=== PATIENT | female | born 1955 | race Caucasian/White ===

== ENCOUNTER 2018-03-15 08:58 | Day surgery (SDC) | END 2018-03-15 15:40 | disposition home or self-care (01) ==

== ENCOUNTER 2018-06-12 19:08 | Emergency (ER) | payer OTHER ==
[~2018-06-12] VITALS: Ht 167.6 cm; Wt 72.9 kg
[~2018-06-12 19:08] MED LIST: AMLO5TAB4 PO; ASPI81TA52 PO; BACL10TA PO; CELE100C PO; DOCU100T PO; ERGO2000 PO; FAMO20TA18 PO; FER325 PO; GLIM2TAB PO; HYDR-4011 PO; METO10TA3 PO; PRAV10TA43 PO; RANI150T5 PO; TOLT2TAB5 PO
[2018-06-12 19:36] VITALS: Ht 167.6 cm; Wt 72.9 kg
--- NOTE | 2018-06-12 21:52 | ERD ---
ER Documentation Chief Complaint Chief Complaint urine catheter bag not draining urine s/p sx lsat tuesday w/ nephrostomy tub HPI This is a 63-year-old female with a past medical history of hypertension, hyperlipidemia, diabetes, bladder cancer complicated by ureteral obstruction status post nephrostomy tube placed 6 months ago status post robotic laparoscopic left ureteral lysis with a ureteroneocystotomy and pelvic lymph node dissection on June 08, 2018 with a Queen catheter placed and nephrostomy tube clamped, who is presenting with concerns of a brief episode of urinary retention from the Queen catheter. The patient's Queen catheter reportedly stopped draining this evening. She noticed small blood clots at first and then urine stopped flowing. The patient called her urologist, Dr. Graham, instructed her to come to the emergency department. Since this episode, the patient was able to pass this blood clot and she has been voiding since then. The patient reports that since voiding, her pain and discomfort have improved significantly. The patient does endorse left-sided abdominal pain, but it is unchanged from her baseline since the surgery. The patient has been taking [place] at home. The patient reportedly was discharged with a prescription for ciprofloxacin, but the patient notes that she is not taking this medication. It is unclear why, but she believes that she is not discharged with an antibiotic. The patient denies feeling sick recently otherwise. The patient denies fever or chills. The patient has had no headache or vision changes. The patient does not endorse neck or back pain. The patient denies lightheadedness or dizziness. The patient has had no chest pain or trouble breathing. The patient denies nausea or vomiting. The patient denies changes to bowel movements. The patient has had no focal deficits. The patient has had no weakness or numbness or tingling to the face or extremities. ROS All systems reviewed and are negative except as per history of present illness. Medications Home Meds Reported Medications Famotidine* (Famotidine*) 20 Mg Tablet, 20 MG PO DAILY, #30 TAB 03/15/18 Metoclopramide Hcl* (Metoclopramide Hcl*) 10 Mg Tablet, 10 MG PO Q6H PRN for NAUSEA AND OR VOMITING, TAB 03/15/18 Docusate Sodium* (Dok*) 100 Mg Tablet, 100 MG PO DAILY, #30 CAP 03/15/18 Tolterodine Tartrate* (Tolterodine Tartrate*) 2 Mg Tablet, 2 MG PO BID, #60 TAB 03/15/18 Ranitidine Hcl* (Ranitidine Hcl*) 150 Mg Tablet, 150 MG PO HS, #30 TAB 03/15/18 Pravastatin Sodium* (Pravastatin Sodium*) 10 Mg Tablet, 10 MG PO HS, TAB 03/15/18 Hydrocodone/Acetaminophen ([place] 5-325 Tablet) 1 Each Tablet, 1 EACH PO QID PRN for PAIN, TAB 03/15/18 Glimepiride* (Glimepiride*) 2 Mg Tablet, 2 MG PO WITH BREAKFAST, TAB 03/15/18 Ferrous Sulfate* (Ferrous Sulfate*) 325 Mg Tabec, 325 MG PO DAILY, TAB 03/15/18 Ergocalciferol (Vitamin D2) (VITAMIN D2) 2,000 Unit Tablet, 2000 UNIT PO DAILY, TAB 03/15/18 Celecoxib* (Celebrex*) 100 Mg Capsule, 100 MG PO BID, CAP 03/15/18 Baclofen* (Baclofen*) 10 Mg Tablet, 10 MG PO DAILY, TAB 03/15/18 Aspirin (Low Dose Aspirin) 81 Mg Tablet.dr, 81 MG PO DAILY, #30 TAB 03/15/18 Amlodipine Besylate* (Norvasc*) 5 Mg Tablet, 5 MG PO BID, TAB 03/15/18 Allergies Allergies: Coded Allergies: Penicillins (Verified Allergy, Unknown, 03/15/18) cephalexin (Verified Allergy, Unknown, 03/15/18) lisinopril (Verified Allergy, Unknown, 03/15/18) morphine (Verified Allergy, Unknown, 03/15/18) nitrofurantoin (Verified Allergy, Unknown, 03/15/18) PMhx/Soc History of Surgery: Yes (Right ovarian cyst removal, urostomy placement) Anesthesia Reaction: No Hx Neurological Disorder: No Hx Respiratory Disorders: No Hx Cardiac Disorders: Yes (Hypertension, hyperlipidemia, diabetes) Hx Psychiatric Problems: No Hx Miscellaneous Medical Probl: No Hx Alcohol Use: No Hx Substance Use: No Hx Tobacco Use: No FmHx Family History: diabetes Physical Exam Vitals Vital Signs Date Temp Pulse Resp B/P (MAP) Pulse Ox O2 O2 Flow FiO2 Time Delivery Rate 06/12/18 81 18 123/80 98 Room Air 23:14 (94) 06/12/18 98.8 94 20 152/84 97 19:36 (106) Physical Exam Const: No apparent distress, well-developed, well-nourished Head: Normocephalic, Atraumatic Eyes: Normal Conjunctiva. Extraocular movements intact. Pupils equal, round and reactive to light ENT: Normal External Ears, Nose and Mouth. Neck: Full range of motion. No meningismus. Resp: Clear to auscultation bilaterally, No wheezes, rales or rhonchi Cardio: Regular rate and rhythm. No murmurs, rubs or gallops Abd: Obese. Healing surgical scars present without erythema or induration or purulence or fluctuance. Soft, non tender, non distended. Normal bowel sounds : Queen catheter in place. Skin: No petechiae or rashes Back: No midline tenderness. No CVA tenderness. Left nephrostomy tube in place. Ext: No cyanosis, or edema Neur: Awake and alert, oriented 4. Cranial nerves intact. No facial droop. Normal strength, sensation and coordination. Psych: Normal Mood and Affect Result Diagram: 06/12/18223206/12/182232 Results 24 hrs Laboratory Tests Test 06/12/18 22:33 White Blood Count 9.0 10^3/ul Red Blood Count 3.63 10^6/ul Hemoglobin 10.7 g/dl Hematocrit 32.2 % Mean Corpuscular Volume 88.7 fl Mean Corpuscular Hemoglobin 29.5 pg Mean Corpuscular Hemoglobin Concent 33.2 g/dl Red Cell Distribution Width 11.8 % Platelet Count 235 10^3/UL Mean Platelet Volume 9.2 fl Immature Granulocytes % 0.200 % Neutrophils % 60.3 % Lymphocytes % 25.0 % Monocytes % 9.5 % Eosinophils % 4.7 % Basophils % 0.3 % Nucleated Red Blood Cells % 0.0 /100WBC Immature Granulocytes # 0.020 10^3/ul Neutrophils # 5.4 10^3/ul Lymphocytes # 2.2 10^3/ul Monocytes # 0.9 10^3/ul Eosinophils # 0.4 10^3/ul Basophils # 0.0 10^3/ul Nucleated Red Blood Cells # 0.0 10^3/ul Urine Color YELLOW Urine Clarity CLOUDY Urine pH 5.0 Urine Specific [place] 1.011 Urine Ketones NEGATIVE mg/dL Urine Nitrite NEGATIVE mg/dL Urine Bilirubin NEGATIVE mg/dL Urine Urobilinogen NEGATIVE mg/dL Urine Leukocyte Esterase 3+ Nick/ul Urine Microscopic RBC 47 /HPF Urine Microscopic WBC > 182 /HPF Urine Bacteria FEW /HPF Urine Mucus FEW /HPF Urine Yeast (Budding) MODERATE /HPF Urine Hemoglobin 3+ mg/dL Urine Glucose NEGATIVE mg/dL Urine Total Protein 2+ mg/dl Sodium Level 140 mmol/L Potassium Level 4.5 mmol/L Chloride Level 98 mmol/L Carbon Dioxide Level 28 mmol/L Anion Gap 14 Blood Urea Nitrogen 14 mg/dl Creatinine 0.71 mg/dl Est Glomerular Filtrat Rate mL/min > 60 mL/min Glucose Level 145 mg/dl Calcium Level 9.9 mg/dl Total Bilirubin 0.5 mg/dl Direct Bilirubin 0.00 mg/dl Indirect Bilirubin 0.5 mg/dl Aspartate Amino Transf (AST/SGOT) 16 IU/L Alanine Aminotransferase (ALT/SGPT) 9 IU/L Alkaline Phosphatase 88 IU/L Total Protein 7.8 g/dl Albumin 4.3 g/dl Globulin 3.50 g/dl Albumin/Globulin Ratio 1.22 Lipase 36 U/L Current Medications Medications Dose Sig/Nidhi Start Time Status Last (Trade) Ordered Route PRN Stop Time Admin Dose Reason Admin Fentanyl 50 mcg ONCE ONCE 06/12/18 DC (Sublimaze) IV 22:30 06/12/18 22:57 1 tab ONCE ONCE 06/12/18 DC 06/12/18 Acetaminophen PO 23:00 23:12 / 06/12/18 23:06 Hydrocodone Bitart ([place] (5/325)) Procedures/MDM MDM The patient's presentation warrants further investigation. Previous medical records, if available, were reviewed. LABS The patient's laboratory testing was obtained and reviewed. No emergent treatment was required unless described below. CBC: No E/o of systemic infection or severe anemia or thrombocytopenia CMP: No E/o severe acidosis or alkalosis or renal failure or liver disease or diabetic ketoacidosis UA: E/o urinary tract infection with hematuria TREATMENT/DISPOSITION The patient presents with a transient Queen catheter obstruction. This resolved prior to arrival to the emergency department. The patient's urinalysis does rev eal evidence of a urinary tract infection with hematuria. This is common in the setting of a recent urologic surgery. That said, the patient does need to be on antibiotics. She reports that she is not currently taking the ciprofloxacin as she believes that she was not given a prescription. The patient will be provided a prescription for this medication. The patient was given [place] in the emergency department for pain control. The patient's pain is postsurgical and unchanged from the baseline pain that she has been having since her surgery. I have low suspicion for an emergent pathology. The patient does not have any evidence of peritonitis. The patient does not have clinical symptom s concerning for mesenteric ischemia or ischemic colitis. The patient does not have right upper quadrant tenderness, and I have low suspicion for gallstones, cholecystitis or biliary colic. The patient does not have any epigastric pain. I have low suspicion for gastritis, PUD or GERD. The patient does not have left upper quadrant tenderness. I have low suspicion for pancreatitis. The patient does not have any right lower quadrant tenderness, or periumbilical tenderness. I have low suspicion for appendicitis. The patient does have left lower quadrant pain, which is where her surgery took place. The patient has not had any black or bloody stools. I have low suspicion for diverticulitis or diverticulosis. The patient does not have any palpable pulsatile mass or severe abdominal pain radiating to the back. I have low suspicion for aortic aneurysm, dissection or rupture. I did want to obtain blood work to assess for infection and kidney function. However, the patient declined. The patient's vital signs are unremarkable. I have low suspicion for a systemic infection. I was able to get a hold of the patient's primary care physician as well as her urologist. Her urologist, Dr. Graham, recommended initiation of the ciprofloxacin and to send off a urine culture. He also recommended bladder irrigation, which was also ordered. Upon reevaluation of the patient, symptoms have improved. No emergent diagnoses were identified. At this time, I feel that the patient stable for discharge. The patient was instructed to follow-up with a primary care physician in 1-3 days. The patient will be given strict precautions with which to return to the emergency department. Prescriptions: Ciprofloxacin The patient's blood pressure was elevated at greater than 120/80 while in the emergency department. The patient was otherwise stable with no evidence of hypertensive urgency or emergency. The patient does not require admission for blood pressure control. I have discussed with the patient the risks of hypertension. I have instructed the patient to return to the ER for any new or worsening symptoms including chest pain, shortness of breath, headache, blurred vision, confusion, nausea, vomiting or LOC. I have advised the patient to follow up with the primary care physician for outpatient monitoring and treatment for hypertension in 1-3 days. Disclaimer: Inadvertent spelling and grammatical errors are likely due to EHR/dictation software use and do not reflect on the overall quality of patient care. Note that the electronic time recorded on this note does not necessarily reflect the actual time of the patient encounter. Departure Diagnosis: Primary Impression: Obstructed Queen catheter Encounter type: initial encounter Qualified Codes: T83.091A - Other mechanical complication of indwelling urethral catheter, initial encounter Additional Impressions: Urinary tract infection Urinary tract infection type: acute cystitis Hematuria presence: with hematuria Qualified Codes: N30.01 - Acute cystitis with hematuria Hematuria Hematuria type: gross Qualified Codes: R31.0 - Gross hematuria Postoperative left lower quadrant abdominal pain Status post urological surgery Condition: Stable BRIANNA CARLISLE MD Jun 12, 2018 21:52
[2018-06-12] MEDS ORDERED: FENTAnyl 50 MCG/ML VIAL IV ONE (22:30)
[2018-06-12] MEDS ORDERED: HYDROCODONE/APAP (5/325) TAB PO ONE (23:00)
[2018-06-12] MEDS ORDERED: CIPR500T4 PO (23:39)
[2018-06-13 00:20] VITALS: BP 141/90; PULSE 83; RESP 18
== END 2018-06-13 00:32 | disposition home or self-care (01) ==
LOC: E/R 19:08
DX: T83.091A Other mechanical complication of indwelling urethral catheter, initial encounter (principal); N30.01 Acute cystitis with hematuria; G89.18 Other acute postprocedural pain; I10 Essential (primary) hypertension; E11.9 Type 2 diabetes mellitus without complications; Y73.2 Prosthetic and other implants, materials and accessory gastroenterology and urology devices associated with adverse incidents; Z48.816 Encounter for surgical aftercare following surgery on the genitourinary system; Z79.82 Long term (current) use of aspirin; Z79.84 Long term (current) use of oral hypoglycemic drugs
CPT/HCPCS: 80053; 81001; 83690; 85025; 87086; Z7502; Z7610; 99283

== ENCOUNTER 2018-10-11 08:03 | Day surgery (SDC) | payer OTHER ==
[~2018-10-11] VITALS: Ht 165.1 cm; Wt 54.8 kg
[2018-10-11] VITALS (18 sets, daily range): BP systolic 135–165; BP diastolic 72–96; PULSE 70–78; RESP 10–27; Ht 165.1 cm; Wt 54.8 kg
[~2018-10-11 08:03] MED LIST changes: +CIPR500T4 PO
[2018-10-11] MEDS ORDERED: PRAV10TA43 PO (09:42)
[2018-10-11] MEDS ORDERED: FER325 PO (09:42)
[2018-10-11] MEDS ORDERED: RANI150T5 PO (09:42)
[2018-10-11] MEDS ORDERED: ASPI81TA52 PO (09:43)
[2018-10-11] MEDS ORDERED: AMLO5TAB4 PO (09:43)
[2018-10-11] MEDS ORDERED: GLIM2TAB PO (09:43)
[2018-10-11] MEDS ORDERED: MONT10TA24 PO (09:44)
[2018-10-11] MEDS ORDERED: CLON-379 PO (09:45)
[2018-10-11] MEDS ORDERED: BENA1TAB12 PO (09:46)
[2018-10-11] MEDS ORDERED: GLIP-160 PO (09:47)
[2018-10-11] MEDS ORDERED: NIFE30TA23 PO (09:47)
[2018-10-11] MEDS ORDERED: SITA50TA2 PO (09:48)
[2018-10-11] MEDS ORDERED: CARV6.2579 PO (09:49)
[2018-10-11] MEDS ORDERED: GENTAMICIN 160 MG in DEXTROSE 5% 100 ML IVPB ONE (10:00)
[2018-10-11] MEDS ORDERED: LACTATED RINGER'S 1,000 ML IV SCH (10:00)
[2018-10-11] MEDS ORDERED: SOD CHLORIDE 0.9% 1,000 ML IV SCH (10:30)
--- NOTE | 2018-10-11 11:00 | PREAC ---
Date/Time of Note Date/Time of Note DATE: 10/11/18 TIME: 10:46 Anesthesia Eval and Record Evaluation Time Pre-Procedure Interview DATE: 10/11/18 TIME: 10:46 Age 63 Sex female NPO: 8 hrs Preoperative diagnosis Bladder Tumor Planned procedure TUR of Bladder Tumor Past Medical History Past Medical History: Includes Cardio: HTN Endo: Diabetes Renal: Other (UTI) Surgery & Anesthesia Issues No known issue Meds Anticoagulation: No Beta Juan Miguel within 24 hr: Yes Reason Beta Juan Miguel not given: Pt. not on B-Juan Miguel Reported Medications Carvedilol* (Carvedilol*) 6.25 Mg Tablet, 6.25 MG PO BID, #60 TAB 10/11/18 Sitagliptin* (Januvia*) 50 Mg Tablet, 50 MG PO DAILY, #30 TAB 10/11/18 Glipizide XL* (Glipizide XL*) 5 Mg Tabsr, 10 MG PO DAILY, TAB 10/11/18 Nifedipine* (Nifedipine ER*) 30 Mg Tablet.sa, 30 MG PO DAILY, TAB.SA 10/11/18 Benazepril-Hydrochlorothiazide (Benazepril-Hydrochlorothiazide) 10-12.5 Mg Tablet, 1 TAB PO DAILY, #30 TAB 10/11/18 Clonidine Hcl* (Clonidine Hcl*) 0.1 Mg Tab, 0.1 MG PO DAILY PRN for ELEVATED BL OOD PRESSURE, TAB FOR SBP EQUAL TO OR ABOVE 150 10/11/18 Montelukast Sodium* (Montelukast Sodium*) 10 Mg Tablet, 10 MG PO QHS, #30 TAB 10/11/18 Glimepiride* (Glimepiride*) 2 Mg Tablet, 2 MG PO WITH BREAKFAST DINNE, TAB 10/11/18 Aspirin (Low Dose Aspirin) 81 Mg Tablet.dr, 81 MG PO DAILY, #30 TAB 10/11/18 Amlodipine Besylate* (Norvasc*) 5 Mg Tablet, 5 MG PO DAILY, TAB 10/11/18 Pravastatin Sodium* (Pravastatin Sodium*) 10 Mg Tablet, 10 MG PO HS, TAB 10/11/18 Ranitidine Hcl* (Ranitidine Hcl*) 150 Mg Tablet, 150 MG PO HS, #30 TAB 10/11/18 Ferrous Sulfate* (Ferrous Sulfate*) 325 Mg Tabec, 325 MG PO DAILY, TAB 10/11/18 Discontinued Reported Medications Famotidine* (Famotidine*) 20 Mg Tablet, 20 MG PO DAILY, #30 TAB 03/15/18 Metoclopramide Hcl* (Metoclopramide Hcl*) 10 Mg Tablet, 10 MG PO Q6H PRN for NAUSEA AND OR VOMITING, TAB 03/15/18 Docusate Sodium* (Dok*) 100 Mg Tablet, 100 MG PO DAILY, #30 CAP 03/15/18 Tolterodine Tartrate* (Tolterodine Tartrate*) 2 Mg Tablet, 2 MG PO BID, #60 TAB 03/15/18 Ranitidine Hcl* (Ranitidine Hcl*) 150 Mg Tablet, 150 MG PO HS, #30 TAB 03/15/18 Pravastatin Sodium* (Pravastatin Sodium*) 10 Mg Tablet, 10 MG PO HS, TAB 03/15/18 Hydrocodone/Acetaminophen ([place] 5-325 Tablet) 1 Each Tablet, 1 EACH PO QID PRN for PAIN, TAB 03/15/18 Glimepiride* (Glimepiride*) 2 Mg Tablet, 2 MG PO WITH BREAKFAST, TAB 03/15/18 Ferrous Sulfate* (Ferrous Sulfate*) 325 Mg Tabec, 325 MG PO DAILY, TAB 03/15/18 Ergocalciferol (Vitamin D2) (VITAMIN D2) 2,000 Unit Tablet, 2000 UNIT PO DAILY, TAB 03/15/18 Celecoxib* (Celebrex*) 100 Mg Capsule, 100 MG PO BID, CAP 03/15/18 Baclofen* (Baclofen*) 10 Mg Tablet, 10 MG PO DAILY, TAB 03/15/18 Aspirin (Low Dose Aspirin) 81 Mg Tablet.dr, 81 MG PO DAILY, #30 TAB 03/15/18 Amlodipine Besylate* (Norvasc*) 5 Mg Tablet, 5 MG PO BID, TAB 03/15/18 Discontinued Scripts Ciprofloxacin Hcl* (Ciprofloxacin Hcl*) 500 Mg Tablet, 500 MG PO BID for 5 Days, TAB Prov:BRIANNA CARLISLE MD 06/12/18 Current Medications Gentamicin Sulfate 160 mg/ Dextrose 104 ml @ 103.75 mls/ hr PREOP ONCE IVPB ; Start 10/11/18 at 10:00; Stop 10/11/18 at 11:00 Sodium Chloride 1,000 ml @ 0 mls/hr Q0M IV Last administered on 10/11/18at 10:00; Admin Dose 0 MLS/HR; Start 10/11/18 at 10:30 Meds reviewed: Yes Allergies Coded Allergies: Penicillins (Verified Allergy, Unknown, 10/11/18) cephalexin (Verified Allergy, Unknown, 10/11/18) ciprofloxacin (Verified Allergy, Unknown, 10/11/18) lisinopril (Verified Allergy, Unknown, 10/11/18) morphine (Verified Allergy, Unknown, 10/11/18) nitrofurantoin (Verified Allergy, Unknown, 10/11/18) Allergies Reviewed: Yes Labs/Studies Labs Reviewed: Reviewed by anesthesiologist test: N/A Pre-procedure Exam Last vitals Vital Signs Date Temp Pulse Resp B/P (MAP) Pulse Ox O2 O2 Flow FiO2 Time Delivery Rate 10/11/18 97.6 72 18 158/92 96 Room Air 10:19 (114) Airway: Adequate mouth opening Mallampati: Mallampati II Teeth: Normal Lung: Normal Heart: Normal ASA Physical Status ASA physical status: 3 Emergency: None Planned Anesthetic General/MAC: LMA Pre-operative Attestations Prior to commencing anesthesia and surgery, the patient was re-evaluated, there was verification of: *The patient's identity *The results of appropriate recent lab work and preoperative vital signs *The above evaluation not changing prior to induction *Anesthetic plan, risk benefits, alternative and complications discussed with patient/family; questions answered; patient/family understands, accepts and wishes to proceed. ANASTACIO MARTINEZ MD October 11, 2018 11:00
[2018-10-11] MEDS ORDERED: MIDAZOLAM 1 MG/ML 2 ML INJ ONE (11:04)
[2018-10-11] MEDS ORDERED: PROPOFOL 20 ML ONE (11:04)
[2018-10-11] MEDS ORDERED: SODIUM CL BACTERIOSTATIC 30 ML INJ ONE (11:12)
[2018-10-11] MEDS ORDERED: IOHEXOL 300MG/ML 30 ML BTL ONE (11:13)
[2018-10-11] MEDS ORDERED: ONDANSETRON 4 MG INJ IV PRN (12:30)
[2018-10-11] MEDS ORDERED: HYDROmorphONE 1 MG/5 ML IV SYRINGE IV PRN (12:30)
[2018-10-11] MEDS ORDERED: ONDANSETRON 4 MG INJ ONE (12:33)
[2018-10-11] MEDS ORDERED: KETOROLAC 30 MG INJ ONE (12:33)
--- NOTE | 2018-10-11 13:04 | HP ---
DATE OF ADMISSION: 10/11/2018 CHIEF COMPLAINT: Gross hematuria. HISTORY OF PRESENT ILLNESS: This is a 63-year-old female with history of muscle invasive bladder cancer who underwent a TURBT followed by chemotherapy. The patient had a left-sided ureteral obstruction and was maintained with nephrostomy tube while she was getting her chemotherapy. After her chemotherapy, the patient was reevaluated. There was no evidence of any further bladder cancer. She did not have any evidence of bladder cancer on cystoscopy and did not have any evidence of metastatic bladder cancer or bladder cancer in the bladder on PET scan. Although I had strongly recommended the patient undergo a cystectomy and also her medical oncologist has recommended for patient to undergo cystectomy, the patient had refused to have this procedure done. In fact for a while, she stopped coming to our office because of this issue. She returned to the office requesting to be further followed for her bladder cancer. Subsequently, patient had a further workup done. Since it appeared that there was no further evidence of bladder cancer the patient underwent a robotic assisted left ureteral reimplantation. Her reimplantation procedure was performed in May 2018. By 07/2018 her stent as well as the nephrostomy tube had been removed. More recently on 10/02/2018, the patient made an urgent appointment with complaints of ongoing hematuria and flank pain. A cystoscopy in my office on 10/02/2018 revealed a raised nonpapillary 3 cm tumor neoplastic appearing along the trigone of the bladder, worrisome for bladder cancer. Her pelvic ultrasound also revealed a similar finding. Patient has continued to have gross hematuria. Her urine culture has been negative. She is now scheduled to undergo a cystoscopy under anesthesia with transurethral resection of the neoplastic tumor seen within the bladder. PAST MEDICAL HISTORY: High blood pressure, diabetes. PAST SURGICAL HISTORY: Cyst in the ovary, gallbladder removal, prior transurethral resection of bladder tumor, nephrostomy tube placement, left ureteral reimplantation. SOCIAL HISTORY: The patient drinks alcohol occasionally. The patient has never smoked. ALLERGIES: INCLUDE: 1. LISINOPRIL. 2. MORPHINE. 3. PENICILLIN. 4. LEVAQUIN. 5. KEFLEX. CURRENT MEDICATIONS: 1. Amlodipine/benazepril. 2. Glimepiride. 3. Metformin. 4. Montelukast. 5. Pravastatin. The patient has had prior IV and oral antibiotic treatments. REVIEW OF SYSTEMS: CONSTITUTIONAL: No fevers, no chills, no change in appetite, weight gain, weight loss. HEENT: No loss of hearing, no ear or sinus pain. No rhinorrhea, nosebleed or sore throat. CARDIOVASCULAR: No chest pain or shortness of breath or heart palpitations. RESPIRATORY: No cough, no phlegm production or visible hemoptysis. GASTROINTESTINAL: No abdominal pain, no cramping, no nausea other than flank pain and lower abdominal pain near the bladder. MUSCULOSKELETAL: No bone pain. No change in strength or joint pain. INTEGUMENTARY: No skin rash or lesions. NEUROLOGICAL: No dizziness, no headaches, no numbness. PSYCHIATRIC: The patient is very anxious and depressed over her situation. HEMATOLOGIC AND LYMPHATIC: The patient has had ongoing gross hematuria. Otherwise, no known bleeding problems. PHYSICAL EXAMINATION: CONSTITUTIONAL: The patient appears to be in no acute distress. GASTROINTESTINAL: Abdomen soft, normal bowel sounds, nondistended, nontender. Hernia exam none noted. Liver and spleen normal. GENITOURINARY: Kidneys, no CVA tenderness. Bladder, no fullness. NECK: Normal appearing, symmetric. Normal tracheal position. Thyroid no enlargement. EXTREMITIES: No edema. ASSESSMENT: 1. History of muscle invasive bladder cancer. Patient has repeatedly refused to undergo cystectomy after having undergone chemotherapy. 2. Ongoing gross hematuria. 3. Neoplasm of uncertain behavior of bladder, worrisome for recurrence of bladder cancer. 4. History of left distal ureteral obstruction status post left ureteral reimplantation. RECOMMENDATIONS: I have spoken with the patient and her in detail about the natural history, biology, grading of bladder tumors. We have discussed various treatment options and she understands these options include but are not limited to no treatment, transurethral resection of bladder tumor, cystectomy, more chemo, XRT, intavesical therapy. Among these options, I recommend the patient undergo transurethral resection of bladder tumor, Bilateral ureteroscopy, cystoscopy bilateral retrograde pyelogram and ureteral stent placement for restaging purposes and for diagnostic purposes and for treating her symptoms. This procedure has been explained to the patient in detail. Risks and benefits have been discussed. All of her questions have been answered. She understands that risks include, but not limited to infection, bleeding, damage to adjacent structures, heart problems, lung problems, possibility of need for further surgery, DVT, PE, NH, CVA, nonresolution of symptoms, recurrence of symptoms, need for other treatments, need for other surgeries, bladder injury, urethral injury, stricture formation, incontinence, bladder perforation, ureteral obstruction. All the patient's questions have been answered, no guarantees given. The patient would like to proceed. Dictated By: ADA THAKUR MD SR/ANTONINO Conf#: [id number] DID#: [id number] MTDD
--- NOTE | 2018-10-11 13:51 | SIPON ---
Date/Time of Note Date/Time of Note DATE: 10/11/18 TIME: 13:49 Operative Report Preoperative Diagnosis bladder tumor Postoperative Diagnosis bladder tumor Operation/Procedure Performed Transurethral resection bladder tumor Cyto/Bilateral retrograde pyelogram bilateral ureteroscopy RIGHT ureteral stent placement Surgeon see signature line ophthalmology assistant none Anesthesia: general Estimated blood loss: 10 - 50 ml's Transfusion Required none Specimen bladder tumor specimen Grafts/Implants 20 fr jung cath, 28 cm 6 fr right ureteral stent Complications none ADA THAKUR October 11, 2018 13:51
--- NOTE | 2018-10-11 13:53 | PAC ---
Date/Time of Note Date/Time of Note DATE: 10/11/18 TIME: 12:35 Post-Anesthesia Notes Post-Anesthesia Note Last documented vital signs BS 155 Vital Signs Date Temp Pulse Resp B/P (MAP) Pulse Ox O2 O2 Flow FiO2 Time Delivery Rate 10/11/18 97.6 72 18 158/92 96 Room Air 10:19 (114) Activity: WNL Respiratory function: WNL Cardiovascular function: WNL Mental status: Baseline Pain reasonably controlled: Yes Hydration appropriate: Yes Nausea/Vomiting absent: Yes ANASTACIO MARTINEZ MD October 11, 2018 13:53
--- NOTE | 2018-10-11 13:53 | PDOCDIS ---
Discharge Instructions DIAGNOSIS Discharge Diagnosis bladder cancer CONDITION [id number] Patient Condition: [id number] Good HOME CARE INSTRUCTIONS: [id number] Diet Instructions: [id number] Regular (diabetic) ACTIVITY: [id number] Activity Restrictions: [id number] Slowly Increase Activity [id number] Bathing Restrictions: [id number] Shower FOLLOW UP/APPOINTMENTS Follow-up Plan one week ADA THAKUR October 11, 2018 13:53
[2018-10-11] MEDS ORDERED: HYDROCODONE/APAP (10/325) TAB PO PRN (15:00)
--- NOTE | 2018-10-11 15:16 | OPR ---
DATE OF OPERATION: 10/11/2018 OPERATING SURGEON: Ada Graham MD WARP TYING MACHINE TENDER: None. PREOPERATIVE DIAGNOSIS: Bladder cancer. POSTOPERATIVE DIAGNOSIS: Recurrent bladder cancer. PROCEDURES PERFORMED: 1. Transurethral resection of bladder tumor greater than 5 cm. 2. Bilateral ureteroscopy. 3. Cystoscopy with bilateral retrograde pyelograms. 4. Placement of right ureteral stent. INDICATIONS FOR PROCEDURE: This patient has a history of muscle invasive bladder cancer. She had pr eviously undergone chemotherapy, but refused to undergo cystectomy. The patient also has had a left- sided ureteral reimplantation. She presented with gross hematuria and on cystoscopy, she was found t o have recurrence of relatively large mass near the bladder neck. The patient is now scheduled to un dergo TURBT and evaluation of both of the kidneys. Procedure has been explained to the patient in de tail. Risks and benefits have been discussed. All of her questions have been answered. No guarante es were given. She would like to proceed. FINDINGS: Cystoscopic evaluation of the bladder revealed a large neoplastic tumor which was nonpapil suzette, irregular and friable located along the left trigone near the previous left ureteral orifice. Furthermore, there was a neoplastic tumor around the almost entire bladder neck. This tumor extended from the 3 o'clock position to the 12 o'clock position and contralaterally to the 6 o'clock position . Bilateral ureteroscopy revealed no evidence of tumors in the ureters or in the kidneys. The left ureteral orifice was well away from the area of tumor. Since it was reimplanted, it was along the le ft lateral/posterior wall of the bladder. No tumors were seen in this area. Resection was carried d own to what appeared to be muscle in order to obtain diagnosis through the deeper layers. A 26 cm 6- Mauritanian stent was placed on the right side since the right ureteral orifice was within 0.5 cm of the r esection site. DESCRIPTION OF PROCEDURE: The patient was brought to the operating room, underwent general laryngeal mask anesthesia, was placed in lithotomy position. Abdomen, perineum and genitalia were prepped and draped in usual sterile fashion. Initially, the resectoscope was attempted to be placed; however, t here was obstruction at the bladder neck. Therefore, the urethra was calibrated with female sounds. Next, the resectoscope was placed by the skein mercerizing machine operator which easily entered the bladder. Cystoscopy was then performed. A large raised mass was identified along the floor of the bladder, mostly to the lef t side, but extending midline almost to the right side. This mass was irregular, firm, friable and p rotruding into the lumen of the bladder. The mass appeared to arise from the floor of the bladder ne ar where the previous left ureteral orifice existed. Furthermore, there was similar appearance of ne oplastic mass which was not papillary but irregular and friable along the bladder neck almost circumf erentially. The rest of the bladder was examined. No papillary tumors were seen. The new left uret eral orifice was identified which was located in the left lateral wall/posterior junction. There wer e no papillary tumors in this area. Bipolar resecting element was then attached. Attention was then paid to resection of the tumor along the floor of the bladder. This trigonal tumor was resected initially along its superficial surfaces . As this was done, there were multiple vessels feeding the tumor which were cauterized. Resection was carried down to the flat fossa. This tumor was about 3 cm and was resected down to flat fossa. The tumor specimen was then removed. Hemostasis was obtained. The tumor specimen was sent to pathrody velazquez as a bladder tumor along the left trigone. Next, deeper resection using the electrocautery, bipo lar electrocautery loop was performed through the area of the left trigone tumor. This resection was carried down to what appeared to be muscular tissue. The tissues deep in the muscle also appeared t hickened irregular white. No muscle was easily identifiable; however, deep resection was deonte ed. These tumor specimens were removed and sent to pathology as deep resection at the site of bladde r tumor, left trigone. The button electrode was then used to obtain hemostasis along the entire area of resection from the left trigone. The area of resection was carefully examined. The border of th e resection medially reached within about 1 cm to 0.5 cm from the right ureteral orifice; however the right ureteral orifice had been spared. There was no tumor at the right ureteral orifice. Attention was then paid to resection of bladder neck tumor. Initially, the bladder neck on the right side was resected. This resection was carried from the 12 o'clock position to about the 6 o'clock p osition on the right side. Resection was carried superficial and then deeper circumferentially down to what appeared to be muscular tissue. However, irregular friable appearance of the tumor was visib le in the deeper layers. These tissues were collected and sent to pathology as bladder tumor at left bladder neck. Attention was then paid to the resection of the bladder tumor located along the bladd er neck at the 12 o'clock position towards the 3 o'clock position. This tumor was also resected down to a flat surface. This was sent to pathology as anterior bladder neck tumor. The button electrode was then used to obtain further hemostasis from these areas of resection. Excellent hemostasis had been obtained. Bladder was reexamined. There was no evidence of papillary tumors or other areas that needed to be r esected. However grossly, it appeared that there was still abnormal tissue deeply imbedded into the muscularis of the bladder. The 22-Mauritanian cystoscope was then placed. The right ureteral orifice was identified. An open-ended catheter was placed into the right ureteral orifice. A retrograde pyelogram was performed which reve aled no evidence of filling defects within the right ureter. However at the ureteropelvic junction a tsering, there was small amount of constriction. The contrast entered a dilated renal pelvis and calyces . The lower pole calyx was not easily identifiable. Due to the dilated renal pelvis, decision was m asad to perform ureteroscopy. The Glidewire was advanced all the way up into the right kidney. A fle xible ureteroscope was then advanced over the wire under fluoroscopy all the way into the kidney. Ne xt, renoscopy was performed. Upper pole, middle pole and lower pole calyces were individually intuba chidi with the ureteroscope and examined. No tumors were seen. The renal pelvis also contains no tumo rs. At the ureteropelvic junction area, there was increased muscle activity causing intermittent con traction of the UPJ which was most likely the reason for slight renal pelvis dilation. The entire le ngth ureter was then examined under direct vision. No evidence of tumors were seen within the right ureter. The ureteroscope was discontinued. A wire was placed back up the ureter. Initially, a 26 c m stent was advanced, however appeared to be too short; therefore, the stent was removed. Instead, a 28 cm 7-Mauritanian stent was advanced. The tip of the stent was brought up to the area of the renal pel vis. The wire was retracted and the stent was further advanced until complete coil was obtained unde r fluoroscopy in the kidney. The wire was then completely discontinued and a complete coil was also seen in the bladder. The left ureteral orifice was identified which again was located along the junction of the posterior and left lateral wall area. There did not appear to be any evidence of tumors in this area. The lef t ureteral orifice was intubated with an open-ended catheter. Retrograde pyelogram was performed whi ch revealed no evidence of filling defects. The Glidewire was then advanced. Following the Glidewir e, the cystoscope was discontinued and a flexible ureteroscope was used to advance up into the left k idney. At this point, the left kidney was examined under direct vision. Ureteroscopy of the upper p ole, middle pole and lower pole calyces and renal pelvis was performed. No evidence of tumors were s een. The ureteroscope was brought down the entire length. No evidence of tumors were seen. The ure teroscope was discontinued. At this point, the bladder was reexamined. No evidence of bleeding was identified. The cystoscope w as discontinued. Fluoroscopy confirmed correct placement of the right ureteral stent. A 20-Mauritanian 2 -way catheter was placed for the patient. A vaginal exam was also performed. There was no evidence of tumor extension from the trigone or the floor of the bladder into the vagina. Catheter was placed down to gravity and urine was clear. The patient was then placed in supine position. She was awake tori, extubated and taken to recovery room in stable condition. POSTOPERATIVE CONDITION: Stable. COMPLICATIONS: None. ESTIMATED BLOOD LOSS: Less than 20 mL. BLOOD ADMINISTERED: None. SPECIMENS SENT TO LABORATORY: Bladder tumor resections as described above. DRAINS AND PACKS: A 20 Mauritanian Queen urethral catheter and a 6-Mauritanian 28 cm right ureteral stent. Dictated By: ADA GRAHAM MD, SR/ANTONINO Conf#: [id number] DID#: [id number]
== END 2018-10-11 16:25 | disposition home or self-care (01) ==
LOC: SDS 08:03
PROVIDERS: ATTEND Surgery Surgical Oncology
DX: C67.0 Malignant neoplasm of trigone of bladder (principal); E11.9 Type 2 diabetes mellitus without complications; I10 Essential (primary) hypertension; Z79.82 Long term (current) use of aspirin
CPT/HCPCS: 52235; 71045; 74430; 82962; 88307; C2617; J1170; J1580; J1885; J2250; J2405; J3010; Q9967; Z7512; Z7610